=== PATIENT | female | born 1965 | race Hispanic/Latino ===

== ENCOUNTER 2018-08-15 10:55 | Outpatient (CLI) | payer BC | END 2018-08-15 10:56 | disposition home or self-care (01) | LOC: BICMAMMO 10:55 | PROVIDERS: ATTEND Obstetrics & Gynecology | DX: Z12.31 Encounter for screening mammogram for malignant neoplasm of breast (principal); R92.1 Mammographic calcification found on diagnostic imaging of breast | CPT/HCPCS: 77063; 77067 ==

== ENCOUNTER 2019-09-07 10:03 | Outpatient (CLI) | payer BC ==
--- NOTE | 2019-09-07 10:51 | MMO ---
Bilateral MAMMO Bilat Screen [facility]. CLINICAL HISTORY: Patient is 54 years old and is seen for screening. The patient has no family history of breast cancer. The patient has no personal history of cancer. VIEWS: The views performed were: bilateral craniocaudal with tomosynthesis and bilateral mediolateral oblique with tomosynthesis. FILMS COMPARED: The present examination has been compared to prior imaging studies performed at [facility] on 06/27/2015, 07/07/2016, 08/10/2017 and 08/15/2018. This study has been interpreted with the assistance of computer-aided detection. MAMMOGRAM FINDINGS: There are scattered fibroglandular densities. There is a focal asymmetry seen in the posterior region of the left breast at 12 o'clock. In the right breast, there are no suspicious masses, calcifications or areas of architectural distortion. IMPRESSION: FOCAL ASYMMETRY IN THE LEFT BREAST REQUIRES ADDITIONAL EVALUATION. RECOMMEND DIAGNOSTIC MAMMOGRAM. ULTRASOUND MAY ALSO PROVE USEFUL AT RECALL. THE RESULTS OF THIS EXAM WERE SENT TO THE PATIENT. ACR BI-RADS Category 0 - Incomplete: Need additional imaging evaluation. [facility] will notify the patient of the need for additional imaging services. MAMMOGRAPHY NOTE: 1. A negative mammogram report should not delay a biopsy if a dominant of clinically suspicious mass is present. 2. Approximately 10% to 15% of breast cancers are not detected by mammography. 3. Adenosis and dense breasts may obscure an underlying neoplasm. Reported by: JIGAR DIXON MD Electonically Signed: [id number]
--- NOTE | 2019-09-07 11:08 | BD ---
EXAM: DEXA bone density examination HISTORY: 54-year-old postmenopausal female for screening COMPARISON: None FINDINGS: L1--bone mineral density 1.122 g/sq cm; T score 1.2 L2--bone mineral density 1.181 g/sq cm; T score 1.4 L3--bone mineral density 1.145 g/sq cm; T score 0.6 L4--bone mineral density 1.146 g/sq cm; T score 0.8 Total L1-L4--bone mineral density 1.148 g/sq cm; T score 0.9 Left femoral neck--bone mineral density0.845; T score 0.0 Total proximal left femur--bone mineral density 1.103; T score 1.3 IMPRESSION: Normal bone density
== END 2019-09-07 10:04 | disposition home or self-care (01) ==
LOC: BICMAMMO 10:03
PROVIDERS: ATTEND Obstetrics & Gynecology
DX: Z12.31 Encounter for screening mammogram for malignant neoplasm of breast (principal); Z13.820 Encounter for screening for osteoporosis; M81.0 Age-related osteoporosis without current pathological fracture; M85.80 Other specified disorders of bone density and structure, unspecified site; N64.89 Other specified disorders of breast; Z79.890 Hormone replacement therapy
CPT/HCPCS: 77063; 77067; 77080

== ENCOUNTER 2019-09-14 13:21 | Outpatient (CLI) | payer BC ==
--- NOTE | 2019-09-14 14:04 | MMO ---
Left Breast MAMMO Unilat Diag DDI LT+ELIDA. CLINICAL HISTORY: Patient is 54 years old and is seen for additional evaluation requested from prior study. The patient has no family history of breast cancer. The patient has no personal history of cancer. VIEWS: The views performed were: left craniocaudal with tomosynthesis; left mediolateral oblique with tomosynthesis; and left mediolateral with tomosynthesis. FILMS COMPARED: The present examination has been compared to prior imaging studies performed at [facility] on 07/07/2016, 08/10/2017, 08/15/2018 and 09/07/2019. This study has been interpreted with the assistance of computer-aided detection. MAMMOGRAM FINDINGS: There are scattered fibroglandular densities. There are benign appearing calcifications seen in the left breast. There are no suspicious masses, calcifications or areas of architectural distortion. The area of concern noted on the prior examination does not persist on today's additional mammography. There are no suspicious masses, suspicious calcifications, or new areas of architectural distortion. IMPRESSION: THERE IS NO MAMMOGRAPHIC EVIDENCE OF MALIGNANCY. A ROUTINE FOLLOW-UP MAMMOGRAM IN 1 YEAR IS RECOMMENDED. THE RESULTS OF THIS EXAM WERE SENT TO THE PATIENT. ACR BI-RADS Category 2 - Benign finding MAMMOGRAPHY NOTE: 1. A negative mammogram report should not delay a biopsy if a dominant of clinically suspicious mass is present. 2. Approximately 10% to 15% of breast cancers are not detected by mammography. 3. Adenosis and dense breasts may obscure an underlying neoplasm. Reported by: INDERJIT ROGERS MD Electonically Signed: [id number]
== END 2019-09-14 13:22 | disposition home or self-care (01) ==
LOC: BICMAMMO 13:21
PROVIDERS: ATTEND Obstetrics & Gynecology
DX: N64.89 Other specified disorders of breast (principal)
CPT/HCPCS: G0279